=== PATIENT | male | born 1935 | race Caucasian/White ===

== ENCOUNTER 2017-03-06 11:06 | Inpatient (IN) | payer MEDICARE, OTHER ==
[~2017-03-06] VITALS: Ht 182.9 cm; Wt 75.0 kg
--- NOTE | 2017-03-10 07:41 | ER ---
ADMIT: 03/06/2017 RM/LOC: 310 [facility] MR#: [id number] 2620 [facility] [address] [place] [phone] DOLORES WELCH [address] [place], [place] [address] Emergency Room Report SEX: M AGE: 81 : 1935 DATE: 03/06/2017 TIME: 1106 hours. Please refer to my T-sheet for complete H and P. Briefly, patient is an 81-year-old who kind of has not had been doing well at home for the last 4 days. He has not been eating or drinking very well, he has been sick. His found him on the floor this morning. He is able to get back to it and continued to get weaker and weaker. They called the ambulance. When they arrived, they went ahead and started CPR as his pulse was absent. He then got a pulse, intubated brought him in improved, but low blood pressure and weak. His blood sugar at the scene was okay. PHYSICAL EXAM: VITAL SIGNS: Here blood pressure is 71/42, pulse 70, respirations assist, temp 99.3, saturating 100% with assist. GENERAL: He is unresponsive. HEENT: Head is atraumatic. Pupils are 2 mm sluggishly reactive. Nose clear. Throat clear. LUNGS: Slightly coarse. The ET tube sounds a little bit distant. HEART: Regular. ABDOMEN: Soft, nondistended. EXTREMITIES: He has a left pgcwi-mbt-hmvv amputation. His right one has mild edema. EMERGENCY DEPARTMENT COURSE: We did the whole sepsis pathway. Chest x-ray showed ET tube in poor position. His EKG was atrial fib, rate 101, nonspecific changes. At this point, his glucose is 139. I ordered all of sepsis protocol. We will start antibiotics here after blood cultures obtained. We are going to get a CAT scan on the way up to the ICU. I talked to Dr. Ott who is on for Dr. Casillas. I talked to Dr. Chung who will do the vent. They both will meet him up there and Dr. Ott is in the ER evaluating. At that point, I went ahead and electively exchanged ET tube. When we pulled it out, it did not seem to be in place. I used direct laryngoscopy to replace the ET tube without difficulty with an 8-0 was 24 at the lips. Breath sounds ADMIT: 03/06/2017 RM/LOC: 310 [facility] MR#: [id number] [address] [address] DOLORES WEL[address] [place] [address] Emergency Room Report SEX: M AGE: 81 : 1935 were much improved. ASSESSMENT: 1. Cardiopulmonary resuscitation, successful. 2. Hypotension. 3. Return of spontaneous circulation. 4. Decreased level of consciousness. 5. Dehydrated. 6. Intubated in the ER. 7. Critical care time of 75 minutes. PLAN: Admit to the ICU under the care of Dr. Ott and Dr. Chung. Jeffrey Chowdhury MD/ bettyl JOB #: [id number] CC: Ron Casillas MD, Attending Physician Ron Casillas MD, Family Physician
--- NOTE | 2017-03-19 08:46 | HP ---
ADMIT: 03/06/2017 RM/LOC: 310 [facility] MR#: [id number] 2620 [facility] [address] [place] [id number] DOLORES WELCH [address] [place] [address] History and Physical SEX: M AGE: 81 : 1935 Corrected: 03/07/2017 0727 njv DATE OF SERVICE: 03/06/2017 CHIEF COMPLAINT: Post code. HISTORY OF PRESENT ILLNESS: Dolores is an 81-year-old, white male patient, normally seen by Dr. Casillas at the [facility]. The interview or the history is obtained from his family members today as Judah is presently intubated and obtunded at the moment. His daughter with whom he lives, reports that in the past four days, he has become increasingly weak and increasingly tired. He has not been wanting to do much other than sleep. He has not been eating well. Has not been drinking much of anything. There have been several instances in the previous preceding four days, where his daughter wanted to bring him to the Emergency Department to be seen and he refused. Earlier this morning, she was awoken from sleep with him yelling at her because he had slipped and fallen out of the bed trying to put his prosthetic leg on, and she was unable to get him up without help. She was able to get him back into bed; at which time, he stated he was very weak and thought that perhaps he needed to get in to see Dr. Casillas on Wednesday to go to a senior living, but in the meantime, he felt that he probably did need to go to the ER. She called another family member, and they were going to try and get him to the ER, but by the time the family member arrived, he was having agonal breathing and was beginning to act very much unlike himself, so they called the ambulance. By the time the ambulance squad got there, they found him to have agonal respirations and no pulse. He subsequently underwent 4 minutes of CPR. He did not require any cardioversion. He was intubated out in the field and was subsequently brought to the ER by ambulance. PAST MEDICAL HISTORY: Remarkable for: 1. Chronic obstructive pulmonary disease. 2. Peripheral vascular disease, status post left erxeo-smo-jvhm amputation. 3. Coronary artery disease, status post stents. 4. Insulin-dependent diabetes mellitus type 2. 5. Hypertension. 6. Hyperlipidemia. 7. Chronic lymphocytic leukemia. 8. Chronic atrial fibrillation, on chronic Coumadin therapy. 9. Benign prostatic hypertrophy. 10.History of kidney and renal insufficiency. 11.Chronic vitamin B12 deficiency. 12.History of congestive heart failure. ALLERGIES: HE HAS NO KNOWN MEDICAL ALLERGIES. MEDICATIONS: Pertinent medications at this time include his chronic Coumadin therapy. Please refer to his admission MAR for further details on his admission medications. ADMIT: 03/06/2017 RM/LOC: 310 [facility] MR#: [id number] [address] [place] [phone] REBEKAHDOLORES SPENCE [address] [place] [address] History and Physical SEX: M AGE: 81 : 1935 SOCIAL HISTORY: [facility]. He still smokes. He is a longstanding smoker. He does not drink alcohol or use any recreational drugs. He is retired. FAMILY HISTORY: Significant for coronary artery disease but is essentially unchanged from previous. In reviewing his previous symptoms with his daughter and family members, he has not been complaining of any chest pain, shortness of breath, cough, fevers, diarrhea, burning with urination, abdominal pain, vomiting, or rashes. REVIEW OF SYSTEMS: Of note, he was complaining of some right heel pain prior to all this. The remainder of his review of systems is either negative or unobtainable due the patient's status. PHYSICAL EXAMINATION: VITAL SIGNS: Blood pressure is 88/54, pulse is 97 and irregularly irregular, respirations presently are 27 to 28 over breathing the vent, temperature is 99.3, and O2 saturation is 100% on an FiO2 of 30% with a PEEP of 5. GENERAL: He is presently obtunded and intubated. He is not responding. HEENT: Pupils are fixed at about 2 mm. Normocephalic, atraumatic. NECK: Supple. No lymphadenopathy. No thyromegaly. HEART: Irregularly irregular. LUNGS: Diminished throughout. ABDOMEN: Soft. Nondistended. No masses. EXTREMITIES: He has had a previous left asves-khw-wbwj amputation. His prosthesis is actually on and in place at this time. The right lower extremity is without cyanosis, clubbing, or edema. LABORATORY AND X-RAY DATA: Much of his labs are still pending. What is available is a post tube chest x-ray following the code, which shows his endotracheal tube to be minimally in place. This is since the tube has been removed and replaced, and a repeat chest x-ray is pending. A CBC shows a white count of 19, hemoglobin of 11, hematocrit of 32, and a platelet of 106. CMP is pending. INR is pending. Procalcitonin is pending. His lactic acid is still pending. Post tube placement is still pending. A 20-minute post ET tube and mechanical vent ABG is still pending. ASSESSMENT: 1. Respiratory failure. 2. Cardiac arrest. 3. Chronic obstructive pulmonary disease. 4. History of peripheral vascular disease, status post left lower leg amputation. 5. Ischemic cardiomyopathy and coronary artery disease. 6. Insulin-dependent diabetes mellitus type 2. 7. Hypertension. 8. Hyperlipidemia. 9. Chronic lymphocytic leukemia. ADMIT: 03/06/2017 RM/LOC: 310 [facility] MR#: [id number] [address] [address] DOLORES WELCH [address] [place] [address] History and Physical SEX: M AGE: 81 : 1935 10.Chronic vitamin B12 deficiency. 11.Chronic atrial fibrillation. 12.Benign prostatic hypertrophy. 13.Chronic kidney disease. PLAN: Plan right now is to work on fluid resuscitating Judah and getting his blood pressure to an improved MAP. I am going to start him on Levophed. I am also going to start him empirically on vancomycin, Levaquin, and Zosyn. I have asked Dr. Chung with Internal Medicine to consult for vent management and critical care management. We do not have critical care coverage or Neurology coverage here at this time. Blood cultures are pending. We will start him on a Reeves catheter. Strict I's and O's. I am going to check a series of cardiac enzymes and EKGs. We will also be getting a CT of his head and neck to rule out any fractures or bleeds. We will start him on Accu-Cheks q.6 hours while he is n.p.o. and obviously keep him n.p.o. while intubated. Start him on low- dose supplemental Humalog scale. Further management is going to be dependent on the course of his workup and clinical course. In the meantime, I am also going to have Social Work consult as apparently Judah has a do not resuscitate order somewhere out there but without a written copy, and the family is uncertain of the status. We will proceed with aggressive management until this can be clarified. Ilya Ott MD/ rober JOB #: [id number] CC: Ron Casillas, Attending Physician Ron Casillas, Family Physician Corrected: 03/07/2017 0727 [id number]
--- NOTE | 2017-03-26 08:28 | CO ---
ADMIT: 03/06/2017 RM/LOC: 310 [facility] MR#: [id number] [address] [place] [phone] DOLORES WELCH [address] [place] [address] Consultation SEX: M AGE: 81 : 1935 DATE OF CONSULTATION: 03/06/2017 ATTENDING PHYSICIAN: Ron Casillas CONSULTING PHYSICIAN: Fede Alva MD REQUESTING PHYSICIAN: Ilya Ott MD. CONSULTING PHYSICIAN: Fede Alva MD. REASON FOR CONSULTATION: Inability to place Reeves catheter. HISTORY PRESENT ILLNESS: The patient is a pleasant 81-year-old white male, who was admitted after "intubated unresponsive." I did review the patient's chart. He is a well known patient of ours. He has a history of transurethral resection prostate gland in 2012, has had persistently elevated residuals between 100 and 300 mL. Upon followup, although voiding pattern was overall stable, he had been continued on Flomax for the last year or so. Nursing staff in the emergency room was unable to place Reeves catheter. I am consulted. PHYSICAL EXAMINATION: GENERAL: The patient is intubated and responsive. ABDOMEN: Soft. : The patient is circumcised. Glans without plaques or lesions. Testes descended bilaterally without mass or tenderness. Meatus is adequate, but diffuse. Spread the meatus slightly. 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 PROCEDURE: The patient was prepped and draped in usual sterile fashion. Lidocaine jelly was used for topical anesthesia. I did dilate the distal ADMIT: 03/06/2017 RM/LOC: 310 [facility] MR#: [id number] [address] [address] REBEKAH DOLORES Murphy [address] [place] [address] Consultation SEX: M AGE: 81 : 1935 stricture to 20-Setswana using the Jessica sounds. This was uneventful. 16- Setswana Reeves catheter was passed per urethra, 10 mL instilled in the Reeves balloon. Brisk return of clear urine. No complications from the Reeves catheter placement and urethral dilation. ASSESSMENT: Stricture of the fossa navicularis. Dilated to 20-Setswana 16- Setswana Reeves placed. PLAN: Continue Reeves catheter to gravity drainage. May discontinue when no longer needed. Upon voiding trial when patient does recover, I would expect residuals between 100 and 300 mL. If that is the case, I would not replace Reeves catheter and follow the patient conservatively. Fede Alva MD/ rober JOB #: [id number] CC: Ron Casillas, Attending Physician Ron Casillas, Family Physician
--- NOTE | 2017-03-26 10:38 | CO ---
ADMIT: 03/06/2017 RM/LOC: 310 [facility] MR#: [id number] [address] [address] DOLORES [address] [place] [address] Consultation SEX: M AGE: 81 : 1935 DATE OF CONSULTATION: 03/07/2017 ATTENDING PHYSICIAN: Ron Casillas CONSULTING PHYSICIAN: Luis Eduardo Ozuna MD REASON FOR CONSULTATION: Elevated troponin. HISTORY OF PRESENT ILLNESS: Dolores is an 81-year-old gentleman, with a history of coronary disease. Heart cath in 2008, after an abnormal stress test showed a chronically occluded LAD with faint collaterals. He had nonobstructive disease elsewhere and his ejection fraction was 45%. He does have a history of heart failure. He is diabetic and he has permanent AFib. He has also had a right femoral endarterectomy and is tfjmb-ghv-zjqt left leg amputation. He was admitted yesterday. According to the ER medical record, he was having progressive weakness for the past 4 to 5 days. He was having increasing fatigue, some shortness of breath. There is no report of chest pain. He lives with his daughter. There are no family members present now and he is currently intubated and unable to communicate, so I am getting most of the history per the medical record. Yesterday, he had slipped and fallen when he was trying to get out of bed and put on his prosthetic leg. His family members were unable to help him get back to bed. By the time she called the ambulance, apparently, he had agonal breathing and there was no palpable pulse. CPR was performed. Apparently, there were no ventricular arrhythmias. From the description, it sounds like pulseless electrical activity. There are no reports of anginal symptoms. He did have spontaneous confucianism of circulation and he was intubated in the field, but that was redone in the emergency room. He has been on the ventilator overnight. His troponins have been elevated, just above 1. His CK and CK-MB have not been markedly elevated. I was asked to see him at the request of Dr. Ott for the elevated troponin. Currently, he is still intubated. He is breathing about 40 times a minute. The troponin has not changed. His EKG shows AFib, with no ischemic EKG changes. PAST MEDICAL HISTORY: Illnesses: Insulin-dependent diabetes, coronary artery disease, peripheral vascular disease, permanent AFib, ischemic cardiomyopathy, hypertension, hyperlipidemia, COPD, history of tobacco abuse. ALLERGIES: THERE ARE NO KNOWN MEDICAL ALLERGIES. HOME MEDICATIONS: Include: 1. Humalog insulin. 2. Atorvastatin 80 mg daily. 3. Coumadin 2.5 mg alternating with 5 mg. 4. Coreg 12.5 mg b.i.d. 5. Combivent inhaler. 6. Flomax 0.4 mg daily. 7. Lasix 40 mg daily. ADMIT: 03/06/2017 RM/LOC: 310 [facility] MR#: [id number] [address] [place] [phone] DOLORES WELCH [address] [place] [address] Consultation SEX: M AGE: 81 : 1935 8. Vasotec 5 mg daily. 9. Vitamin B12. 10.Senna. 11.Colace. 12.Tylenol. PAST SURGICAL HISTORY: Includes an appendectomy and tonsillectomy, prostatectomy. FAMILY HISTORY: Both his brother and mother had premature coronary disease. SOCIAL HISTORY: He currently lives with his daughter. I am not sure if he is still smoking. He is retired. There is no history of illicit drug use. REVIEW OF SYSTEMS: Unobtainable. PHYSICAL EXAMINATION: VITAL SIGNS: His current blood pressure is 148/57, respirations 28, his pulse is 120, he is breathing about 35 times a minute on the ventilator. GENERAL: His eyes are closed. He has rapid breathing. When I treat him, he is able to turn his head toward me, but he does not open his eyes. I asked him to squeeze my hand, I think he did make an effort, but he was unable. EYES: Sclerae clear. No xanthelasmas. ENT: Bilateral carotid bruits. HEART: Distant, irregularly irregular. No significant murmurs, rubs, or gallops. CHEST: Diffuse rhonchi throughout, but symmetric respirations. ABDOMEN: Soft and nontender. EXTREMITIES: The left leg has previous amputation. There is trivial edema at the ankles of the right leg. PSYCH: He is intubated and sedated. MUSCULOSKELETAL: There are arthritic changes of the hands, otherwise unremarkable. LABORATORY DATA: His PO2 this morning is 84, pCO2 is only 22, pH is 7.44. Sodium 141, potassium 3.7, CO2 was 18, glucose 120, creatinine 1.4, calcium 7.7. AST is just mildly elevated at 42, with an ALT of 37. His troponin has been 1.08 and 1.07. CKs have all been normal, less than 200 with an MB less than 7. His INR was 7.55, his hemoglobin is 11.2, white count 16.9, platelet count is a 100,000. IMAGING: Chest x-ray did not show any obvious vascular congestion with mild cardiomegaly. CT of the head was unremarkable for acute process. A 12-lead EKG shows AFib, but no acute ischemic EKG changes. IMPRESSION: 1. Vzb-sd-obipqjjf arrest with probable pulseless electrical activity. 2. Respiratory failure and possible sepsis. ADMIT: 03/06/2017 RM/LOC: 310 [facility] MR#: [id number] [address] [place] [phone] DOLORES WELCH [address] [place] [address] Consultation SEX: M AGE: 81 : 1935 3. Elevated troponin. 4. Known coronary artery disease. 5. Peripheral vascular disease. 6. Ischemic cardiomyopathy. 7. Diabetes. 8. Permanent atrial fibrillation. RECOMMENDATIONS: The troponin elevation has been mild and persistent with unremarkable CKs. He did have pulseless electrical activity, but no ventricular arrhythmias and there are no reports of angina. This type of troponin elevation is not consistent with an acute coronary syndrome. I think it is more reflective of a demand ischemia and a type 2 myocardial infarction. This appears to be a probable primary respiratory failure with subsequent PEA. There is no need for heparin at this point as he is not having an acute coronary syndrome. His INR is supratherapeutic. Depending on how quickly his INR decreases, we could start heparin for his atrial fibrillation. We would also resume some IV or oral beta-barrington once he is off pressors and we will plan on doing an echo tomorrow to reassess his LV function. Luis Eduardo Ozuna MD/ rober JOB #: [id number] CC: Ron Casillas, Attending Physician Ron Casillas, Family Physician
--- NOTE | 2017-03-26 11:57 | DS ---
ADMIT: 03/06/2017 RM/LOC: 310 [facility] MR#: [id number] [address] [address] REBEKAHDOLORES [address] [place] [address] Discharge Summary SEX: M AGE: 81 : 1935 ADMISSION DATE: 03/06/2017 DISCHARGE DATE: 03/07/2017 HISTORY AND PHYSICAL: Please see the chart. LABORATORY AND X-RAY DATA: Please see the chart. CLINICAL COURSE: This patient was brought to the emergency room having collapsed at home and was coded, intubated and brought into the emergency room obtunded. He had not been eating and drinking well. He had been increasingly fatigued. He was quite weak, his daughter was unable to get him up and he stopped breathing at home. He was given approximately 4 minutes of CPR. He was intubated and brought to the emergency room. Dr. Ott saw the patient post code and consulted with Dr. Chung who was kind enough to assist with ventilator care. He was continued on the vent. He was given IV fluids. Cultures were obtained. A CT of the cervical spine was obtained. No evidence of an acute myocardial infarction was found. The troponin level was mildly elevated. Dr. Ozuna was consulted in regards to the elevated troponin level. His prothrombin time was markedly elevated. He was given transfusion of 1 unit of fresh frozen plasma. He was given intravenous potassium. A catheter was then able to be placed and Urology was consulted. A Reeves catheter was placed. An oral gastric tube was placed. He was given one dose of vancomycin, a dose of intravenous Levaquin and intravenous Zosyn. The patient at his request and his daughter's request was a do not resuscitate. The patient continued to do poorly. Restraints had to be used per protocol. The patient was given nutrition per public health nutritionist's recommendation. He began shaking his head to questions yes or no. A consultation was requested with pulmonology but initially they were unavailable. The patient on 03/07. CAUSE OF : 1. Acute respiratory failure with cardiopulmonary arrest. 2. Coronary artery disease with previous stents. ADMIT: 03/06/2017 RM/LOC: 310 [facility] MR#: [id number] [address] [address] DOLORES WELCH [address] [place] [address] Discharge Summary SEX: M AGE: 81 : 1935 3. Insulin-dependent diabetes mellitus type 2. 4. Hypertension. 5. Hyperlipidemia. 6. Chronic lymphocytic leukemia. 7. Chronic atrial fibrillation. 8. Prostatic hypertrophy. 9. Renal insufficiency. 10.Chronic vitamin B12 deficiency. 11.History of congestive heart failure. 12.Chronic obstructive lung disease severe. 13.Life long history of tobacco abuse. 14.Peripheral vascular disease with left lower leg amputation. Ron Casillas MD/ vdg JOB #: [id number] CC: Ron Casillas MD, Attending Physician Ron Casillas MD, Family Physician
--- NOTE | 2017-03-29 08:35 | CO ---
ADMIT: 03/06/2017 RM/LOC: 310 [facility] MR#: [id number] [facility] [address] [place], [place] [id number] REBEKAHDOLORES SP[address] [place] [address] Consultation SEX: M AGE: 81 : 1935 DATE OF CONSULTATION: 03/06/2017 ATTENDING PHYSICIAN: Ron Casillas CONSULTING PHYSICIAN: Gary Chung DO REASON FOR HOSPITALIZATION: Unresponsiveness requiring in-field return of spontaneous circulation after 4 minutes of CPR. HISTORY: This is an 81-year-old, male patient of Dr. Casillas who was unresponsive at home which prompted CPR with successful return of spontaneous circulation and transfer ultimately to the Emergency Department, intubation, further assessment, and now transitioned into the intensive care unit. Dr. Ott is acting as attending physician, and has taken care of medical supportive management and has asked me to assist with ventilator management. The patient is currently intubated and I am seeing him initially in the ER and then followed him to the intensive care unit where he is now stable on the ventilator with good arterial blood gas report 0.5 hour after being ventilated. He has a history of hypoglycemia with syncope, coronary artery disease, hyperlipidemia, diabetes, CLL, below-knee amputation, hypertension, chronic atrial fibrillation, BPH, COPD, CHF, CKD, and B12 deficiency. I am unable to really obtain any significant family or social history other than what can be propagated and pulled from his record. REVIEW OF SYSTEMS: Unobtainable other than that reported through the Emergency Department and emergency rescue squad. PHYSICAL EXAMINATION: GENERAL: He is sedated on the ventilator. HEART: Regular. LUNGS: He is intubated with bilateral breath sounds. ABDOMEN: Soft. He initially had poorly positioned endotracheal tube and this ADMIT: 03/06/2017 RM/LOC: 310 [facility] MR#: [id number] [id number] [id number] REBEKAH DOLORES [address] [place] [id number] Consultation SEX: M AGE: 81 : 1935 had been replaced in the Emergency Department. LABORATORY DATA: He has no active infiltrate or pulmonary edema on chest film. BUN 30, creatinine 1.6. Hemoglobin is 11.2, white count 19.2, and platelets 106,000. Blood sugar 139. INR 6.5. Appropriate measures have been taken to address each of these abnormal labs per Dr. Ott's orders. CT scan of the head has been performed en route from the emergency room to the intensive care unit and is currently pending. IMPRESSION: Currently ventilator supported, airway protected 81-year-old male patient without any obvious underlying primary pulmonary etiology. He is intubated and it will help HIM assist with his ventilator management. Gary Chung DO/ rober JOB #: [id number] CC: Ron Casillas, Attending Physician Ron Casillas, Family Physician
== END 2017-03-07 23:08 | disposition expired | DRG 208 ==
LOC: ER 11:06 → 3ICU 11:35
PROVIDERS: ADMIT Family Medicine
PROC: 30233K1 Transfusion of Nonautologous Frozen Plasma into Peripheral Vein, Percutaneous Approach (ICD-10-PCS; principal; 2017-03-06)
PROC: 5A1945Z Respiratory Ventilation, 24-96 Consecutive Hours (ICD-10-PCS; principal; 2017-03-06)
PROC: 0T7D8ZZ Dilation of Urethra, Via Natural or Artificial Opening Endoscopic (ICD-10-PCS; principal; 2017-03-06)
PROC: 0B938ZX Drainage of Right Main Bronchus, Via Natural or Artificial Opening Endoscopic, Diagnostic (ICD-10-PCS; 2017-03-07)
DX: J96.90 Respiratory failure, unspecified, unspecified whether with hypoxia or hypercapnia (principal); I46.9 Cardiac arrest, cause unspecified; I13.0 Hypertensive heart and chronic kidney disease with heart failure and stage 1 through stage 4 chronic kidney disease, or unspecified chronic kidney disease; I95.9 Hypotension, unspecified; C91.10 Chronic lymphocytic leukemia of B-cell type not having achieved remission; I50.9 Heart failure, unspecified; E11.22 Type 2 diabetes mellitus with diabetic chronic kidney disease; I47.2 Ventricular tachycardia; E86.0 Dehydration; J44.9 Chronic obstructive pulmonary disease, unspecified; N35.8 Other urethral stricture; I25.10 Atherosclerotic heart disease of native coronary artery without angina pectoris; E11.51 Type 2 diabetes mellitus with diabetic peripheral angiopathy without gangrene; E78.5 Hyperlipidemia, unspecified; N18.9 Chronic kidney disease, unspecified; I25.5 Ischemic cardiomyopathy; I48.2 Chronic atrial fibrillation; N40.0 Benign prostatic hyperplasia without lower urinary tract symptoms; E53.8 Deficiency of other specified B group vitamins; Z89.512 Acquired absence of left leg below knee; Z79.01 Long term (current) use of anticoagulants; Z95.5 Presence of coronary angioplasty implant and graft; Z82.49 Family history of ischemic heart disease and other diseases of the circulatory system; Z66 Do not resuscitate; Z79.4 Long term (current) use of insulin